=== PATIENT | female | born 1950 | race Caucasian/White ===

== ENCOUNTER 2016-09-01 15:46 | Emergency (ER) | payer MEDICARE, BC ==
[~2016-09-01] VITALS: Ht 165.1 cm; Wt 65.8 kg
[~2016-09-01 15:46] MED LIST: BACL10TA PO; HYDR-3326 PO
--- NOTE | 2016-09-01 16:30 | NUR ---
PT BIB CG FOR DYSURIA RENETTA AT NIGHT WITH BURNING SENSATION. DENIES FEVER. VSS. SEEN BY MD FOR EVAL. SAFETY AND COMFORT MEASURES PROVIDED. WILL MONITOR.
--- NOTE | 2016-09-01 17:00 | NUR ---
URINE SAMPLE OBTAINED, SENT.
[2016-09-01 17:20] LABS: APPEARANCE,URINE Clear (CLEAR); BILIRUBIN,URINE Negative (NEGATIVE); BLOOD, URINE Trace-intact Ery/uL (NEGATIVE); COLOR,URINE Yellow (YELLOW); KETONES,URINE Negative (NEGATIVE); LEUKOCYTE ESTERASE ,URINE Negative (NEGATIVE); NITRITE, URINE Positive (NEGATIVE); PROTEIN,URINE Negative (NEGATIVE); UGLUCOSE Negative (NEGATIVE); UROBILINOGEN,URINE 0.2 EU/dL (0.2)
[2016-09-01 17:37] LABS: BACTERIA,URINE Rare /HPF (None Seen); RBC,URINE 0-2 /HPF (0-2); SQUAMOUS EPITHELIAL CELL,UR Rare /HPF (None Seen); WBC,URINE 0-2 /HPF (0-3)
[2016-09-01] MEDS ORDERED: CIPROFLOXACIN HCL 500 MG TABLET ONE (18:09)
[2016-09-01] MEDS: CIPROFLOXACIN HCL 250 MG TABLET PO ONE (18:15)
--- NOTE | 2016-09-01 18:15 | NUR ---
Patient discharged to home in stable condition. Written and verbal after care instructions given. Patient verbalizes understanding of instruction.
--- NOTE | 2016-09-01 18:15 | NUR ---
PT SAFELY ASSISTED TO HER WHEELCHAIR TO THE WAITING ROOM TO BE PICKED UP BY HER CAREGIVER.
[2016-09-01 18:17] VITALS: BP 138/69
== END 2016-09-01 18:18 | disposition home or self-care (01) ==
LOC: ER 15:48
DX: N39.0 Urinary tract infection, site not specified (principal); G35 Multiple sclerosis
CPT/HCPCS: 51702; 81001; 99284; A4606; 81000-TC; Z7610

== ENCOUNTER 2016-11-04 11:12 | Emergency (ER) | payer MEDICARE, BC ==
[~2016-11-04] VITALS: Ht 162.6 cm; Wt 54.4 kg
--- NOTE | 2016-11-04 11:12 | NUR ---
BIB RA 860 FROM HOME, WORSENING GENERALIZED WEAKNESS SINCE YESTERDAY UNABLE TO GET UP,USUALLY AMBULATES W/ A WALKER. GOWNED PT AWAITING MD ORDER
--- NOTE | 2016-11-04 11:33 | NUR ---
EKG IN PROGRESS
[2016-11-04] MEDS: IV NS 0.9% 1,000 ML BAG IV ONE (11:34)
[2016-11-04 11:36] LABS: BASOPHILS % (AUTO) 0.7 % (0.0-2.0); EOSINOPHILS % (AUTO) 0.5 % (0.0-6.0); HEMATOCRIT 39 % (33-45); HEMOGLOBIN 13.2 g/dL (11.5-14.8); LYMPHOCYTES # (AUTO) 0.9 /CMM (0.8-4.8); LYMPHOCYTES % (AUTO) 14.8 % (20.0-44.0); MEAN CORPUSCULAR HEMOGLOBIN 30 PG (26.0-33.0); MEAN CORPUSCULAR HGB CONC 34 g/dl (31.0-36.0); MEAN CORPUSCULAR VOLUME 88 fL (82-100); MONOCYTES # (AUTO) 0.7 /CMM (0.1-1.30); NEUTROPHILS # (AUTO) 4.2 /CMM (1.8-8.9); PLATELET COUNT (AUTO) 207 /CMM (150-450); RDW COEFFICIENT OF VARIATION 12.7 (11.5-15.0); RED BLOOD CELL COUNT(AUTO) 4.44 MIL/uL (4.0-5.2); WHITE BLOOD COUNT (AUTO) 5.8 K/uL (4.3-11.0)
[2016-11-04 11:47] LABS: CARBON DIOXIDE 25 mmol/L (21-32); CHLORIDE 101 mmol/L (98-107); CREATININE 0.5 mg/dL (0.6-1.3); GLUCOSE 91 mg/dL (74-106); POTASSIUM 3.8 mmol/L (3.5-5.1); SODIUM SERUM 136 mmol/L (136-145); UREA NITROGEN, BLOOD 20 mg/dL (7-18)
[2016-11-04 11:51] LABS: INR 0.96 (0.87-1.13)
[2016-11-04 11:53] LABS: ALANINE AMINOTRANSFERASE 31 U/L (12-78); ALBUMIN 3.8 g/dL (3.4-5.0); ALKALINE PHOSPHATASE 77 U/L (46-116); ASPARTATE AMINOTRANSFERASE 28 U/L (15-37); BILIRUBIN,DIRECT 0.1 mg/dL (0.0-0.2); BILIRUBIN,TOTAL 0.6 mg/dL (0.2-1.0); TOTAL PROTEIN, SERUM 7.4 g/dL (6.4-8.2)
[2016-11-04 11:55] LABS: TROPONIN I < 0.017 ng/mL (0.00-0.056)
[2016-11-04 12:25] LABS: APPEARANCE,URINE Clear (CLEAR); BILIRUBIN,URINE Negative (NEGATIVE); BLOOD, URINE Negative Ery/uL (NEGATIVE); COLOR,URINE Yellow (YELLOW); KETONES,URINE 15 (NEGATIVE); LEUKOCYTE ESTERASE ,URINE Negative (NEGATIVE); NITRITE, URINE Negative (NEGATIVE); PH,URINE 6.5 (5.0-8.0); PROTEIN,URINE Negative (NEGATIVE); UGLUCOSE Negative (NEGATIVE); UROBILINOGEN,URINE 0.2 EU/dL (0.2)
[2016-11-04 12:33] VITALS: BP 135/71
[2016-11-04 12:34] LABS: BACTERIA,URINE None seen /HPF (None Seen); MUCUS,URINE Few /LPF (None Seen); SQUAMOUS EPITHELIAL CELL,UR Few /HPF (None Seen)
--- NOTE | 2016-11-04 12:41 | NUR ---
per bowl topper will be picking up patient and is en route at this time
== END 2016-11-04 13:22 | disposition home or self-care (01) ==
LOC: ER 11:13
DX: R53.1 Weakness (principal); G35 Multiple sclerosis; R09.81 Nasal congestion; R79.1 Abnormal coagulation profile; D64.9 Anemia, unspecified; Z98.890 Other specified postprocedural states
CPT/HCPCS: 36415; 71010-TC; 80048-TC; 80076-TC; 81000-TC; 83605-TC; 84484-TC; 85025-TC; 85730-TC; 87040-TC; 87086-TC; A4606; J7030; Z7610

== ENCOUNTER 2016-12-23 18:18 | Emergency (ER) | payer MEDICARE, BC ==
[~2016-12-23] VITALS: Ht 162.6 cm; Wt 54.4 kg
--- NOTE | 2016-12-23 18:30 | NUR ---
BIBCG FROM HOME DT PAIN IN URINATION. NO HEMATURIA NOR DYSURIA. VSS. AFEBRILE
[2016-12-23 19:20] LABS: APPEARANCE,URINE Clear (CLEAR); BILIRUBIN,URINE Negative (NEGATIVE); BLOOD, URINE Negative Ery/uL (NEGATIVE); COLOR,URINE Light yellow (YELLOW); KETONES,URINE Negative (NEGATIVE); LEUKOCYTE ESTERASE ,URINE Negative (NEGATIVE); NITRITE, URINE Negative (NEGATIVE); PROTEIN,URINE Negative (NEGATIVE); UGLUCOSE Negative (NEGATIVE); UROBILINOGEN,URINE 0.2 EU/dL (0.2)
--- NOTE | 2016-12-23 21:23 | NUR ---
ASSISTED BY ROBIN GASCA TO WHEEL CHAIR TO THE CAR.
--- NOTE | 2016-12-23 21:23 | NUR ---
Patient discharged to home in stable condition. Written and verbal after care instructions given. Patient verbalizes understanding of instruction.
[2016-12-23 21:24] VITALS: BP 110/69
== END 2016-12-23 21:26 | disposition home or self-care (01) ==
LOC: ER 18:21
DX: N89.8 Other specified noninflammatory disorders of vagina (principal); R30.0 Dysuria
CPT/HCPCS: 81001; 87086; 87210; 99284; A4606; 81000-TC; Z7610

== ENCOUNTER 2017-08-11 16:35 | Emergency (ER) | payer MEDICARE, BC ==
[~2017-08-11] VITALS: Ht 162.6 cm; Wt 55.8 kg
[~2017-08-11 16:35] MED LIST changes: -HYDR-3326 PO; +HYDR-3974 PO
--- NOTE | 2017-08-11 17:10 | NUR ---
PATIENT TO ED DT URINARY FREQUENCY AND URGENCY X 2DAYS. PATIENT IS AWAKE AND ALERT, APPEARS IN NO DISTRESS. RESPIRATION EVEN AND UNLABORED. SKIN IS WARM TO TOUCH AND NON DIAPHORETIC. PT IS AFEBRILE. VSS
[2017-08-11 18:01] LABS: BASOPHILS % (AUTO) 0.5 % (0.0-2.0); EOSINOPHILS % (AUTO) 0.8 % (0.0-6.0); HEMATOCRIT 40 % (33-45); HEMOGLOBIN 14.2 g/dL (11.5-14.8); LYMPHOCYTES # (AUTO) 1.8 /CMM (0.8-4.8); MEAN CORPUSCULAR HGB CONC 35 g/dl (31.0-36.0); MEAN CORPUSCULAR VOLUME 88 fL (82-100); MONOCYTES # (AUTO) 0.5 /CMM (0.1-1.30); MONOCYTES % (AUTO) 8.3 % (2.0-12.0); NEUTROPHILS # (AUTO) 3.6 /CMM (1.8-8.9); NEUTROPHILS % (AUTO) 59.4 % (43.0-81.0); PLATELET COUNT (AUTO) 224 /CMM (150-450); RDW COEFFICIENT OF VARIATION 13.1 (11.5-15.0); RED BLOOD CELL COUNT(AUTO) 4.61 MIL/uL (4.0-5.2); WHITE BLOOD COUNT (AUTO) 5.9 K/uL (4.3-11.0)
[2017-08-11 18:37] LABS: APPEARANCE,URINE Clear (CLEAR); BILIRUBIN,URINE Negative (NEGATIVE); BLOOD, URINE Small Ery/uL (NEGATIVE); COLOR,URINE Yellow (YELLOW); KETONES,URINE Negative (NEGATIVE); LEUKOCYTE ESTERASE ,URINE Negative (NEGATIVE); NITRITE, URINE Negative (NEGATIVE); PROTEIN,URINE Negative (NEGATIVE); UGLUCOSE Negative (NEGATIVE); UROBILINOGEN,URINE 0.2 EU/dL (0.2)
[2017-08-11 19:01] LABS: CREATININE 0.5 mg/dL (0.6-1.3); POTASSIUM 3.9 mmol/L (3.5-5.1)
[2017-08-11 19:03] LABS: BACTERIA,URINE Few /HPF (None Seen); SQUAMOUS EPITHELIAL CELL,UR Moderate /HPF (None Seen); URINE AMORPHOUS URATE Few /HPF (None Seen)
[2017-08-11 19:04] LABS: MUCUS,URINE Few /LPF (None Seen)
[2017-08-11 20:15] VITALS: BP 124/88
--- NOTE | 2017-08-11 20:15 | NUR ---
Patient discharged to home in stable condition. Written and verbal after care instructions given. Patient verbalizes understanding of instruction.
== END 2017-08-11 20:16 | disposition home or self-care (01) ==
LOC: ER 16:36
DX: R32 Unspecified urinary incontinence (principal); G35 Multiple sclerosis; F10.10 Alcohol abuse, uncomplicated
CPT/HCPCS: 36415; 51702; 80048; 81001; 85025; 99284; A4606; 81000-TC; Z7610

== ENCOUNTER 2018-11-04 16:25 | Emergency (ER) | payer MEDICARE, BC ==
[~2018-11-04] VITALS: Ht 165.1 cm; Wt 65.8 kg
--- NOTE | 2018-11-04 16:30 | NUR ---
dysuria and urinary frequency. Patient a/ox4, no distress noted, breathing even and unlabored, no sob noted, needs attended. Kept comfortable.
[2018-11-04 16:45] VITALS: BP 122/92
[2018-11-04 17:18] LABS: APPEARANCE,URINE Clear (CLEAR); BILIRUBIN,URINE Negative (NEGATIVE); BLOOD, URINE Trace-intact Ery/uL (NEGATIVE); COLOR,URINE Yellow (YELLOW); KETONES,URINE Negative (NEGATIVE); LEUKOCYTE ESTERASE ,URINE Negative (NEGATIVE); NITRITE, URINE Negative (NEGATIVE); PROTEIN,URINE Negative (NEGATIVE); UGLUCOSE Negative (NEGATIVE); UROBILINOGEN,URINE 0.2 EU/dL (0.2)
[2018-11-04 17:31] LABS: BACTERIA,URINE Rare /HPF (None Seen); SQUAMOUS EPITHELIAL CELL,UR Few /HPF (None Seen); WBC,URINE NONE SEEN /HPF (0-3)
== END 2018-11-04 18:21 | disposition home or self-care (01) ==
LOC: ER 16:32
DX: N39.0 Urinary tract infection, site not specified (principal); G35 Multiple sclerosis; D64.9 Anemia, unspecified; Z98.890 Other specified postprocedural states
CPT/HCPCS: 81000-TC; 87086-TC

== ENCOUNTER 2019-12-05 23:38 | Emergency (ER) | payer MEDICARE, OTHER ==
[~2019-12-05] VITALS: Ht 162.6 cm; Wt 59.0 kg
--- NOTE | 2019-12-05 23:52 | NUR ---
PT AAOX4. BIBRA C/O L RIB PAIN AND L FOOT PAIN S/P FALLING OFF OF HER WHEELCHAIR WHILE CHANGING. NO KO, -TRAUMA. HEMATOMA NOTED L LEG. MD AT BEDSIDE FOR EVAL. NO ACUTE DISTRESS NOTED. SKIN WARM AND INTACT. AWAITING ORDERS.
[2019-12-05] MEDS ORDERED: HYDROCODONE/APAP 5/325MG TABLET ONE (23:57)
[2019-12-06] MEDS ORDERED: HYDROCODONE/APAP 5/325MG TABLET PO ONE
--- NOTE | 2019-12-06 00:09 | NUR ---
RADIOLOGY AT BEDSIDE
--- NOTE | 2019-12-06 01:21 | NUR ---
CALLED AGRICULTURAL EQUIPMENT DESIGN ENGINEER, STATED SHE WILL COMMUNICATIONS EQUIPMENT OPERATOR PT SOON.
--- NOTE | 2019-12-06 02:02 | NUR ---
Patient discharged to home in stable condition. Written and verbal after care instructions given. Patient verbalizes understanding of instruction and RX. Pt wheeled out of E.D. with skin care consultant.
[2019-12-06 02:03] VITALS: BP 129/73
[2019-12-13] MEDS ORDERED: DALF10TA PO (13:45)
[2019-12-13] MEDS ORDERED: ALEN70TA6 PO (13:45)
== END 2019-12-06 02:04 | disposition home or self-care (01) ==
LOC: ER 23:39
DX: S80.12XA Contusion of left lower leg, initial encounter (principal); R07.81 Pleurodynia; G35 Multiple sclerosis; Z98.890 Other specified postprocedural states; Z79.899 Other long term (current) drug therapy; X58.XXXA Exposure to other specified factors, initial encounter; Y93.89 Activity, other specified; Y92.89 Other specified places as the place of occurrence of the external cause; Y99.8 Other external cause status
CPT/HCPCS: 71100-TC; 73590-TC

== ENCOUNTER 2021-02-13 00:26 | Emergency (ER) | payer MEDICARE, OTHER ==
[~2021-02-13] VITALS: Ht 162.6 cm; Wt 61.2 kg
[~2021-02-13 00:26] MED LIST changes: +ALEN70TA80 PO; +DALF10TA PO; -HYDR-3974 PO; +RXVAN XX
--- NOTE | 2021-02-13 00:30 | NUR ---
BIBRA FROM HOME FOR C/O R FOOT PAIN S/P SLIP AND FALL WHILE WALKING W/ HER WALKER. DENIED ANY PAIN ON ANKLE, KNEE OR HIP ON ANY SIDE. A, OX4. REPORTED LIVING W/ A CG. PT WAS ASSISTED TO BED 10ER. ON MONITOR . VSS. WILL CONT TO MONITOR ,
[2021-02-13] MEDS ORDERED: IBUPROFEN 400 MG TABLET ONE (01:25)
[2021-02-13] MEDS ORDERED: IBUPROFEN 400 MG TABLET PO ONE (01:30)
--- NOTE | 2021-02-13 02:35 | NUR ---
TRANSPORTATION WAS ARRANGED TO TAKE THE PT BACK HOME BY [facility]. ETA: AN HOUR
--- NOTE | 2021-02-13 03:58 | NUR ---
PATIENT BEING TRANSFERRED VIA AMBULANCE
[2021-02-13 03:59] VITALS: BP 148/80
== END 2021-02-13 04:43 | disposition home or self-care (01) ==
LOC: ER 00:33
DX: S93.691A Other sprain of right foot, initial encounter (principal); G35 Multiple sclerosis; D64.9 Anemia, unspecified; Z79.899 Other long term (current) drug therapy; Z60.2 Problems related to living alone; W01.0XXA Fall on same level from slipping, tripping and stumbling without subsequent striking against object, initial encounter; Y93.01 Activity, walking, marching and hiking; Y92.89 Other specified places as the place of occurrence of the external cause; Y99.8 Other external cause status
CPT/HCPCS: 73630-TC

== ENCOUNTER 2024-01-23 03:10 | Emergency (ER) | payer MEDICARE, OTHER ==
[~2024-01-23] VITALS: Ht 162.6 cm; Wt 67.1 kg
[2024-01-23 03:39] LABS: BASOPHILS % (AUTO) 0.7 % (0.0-2.0); EOSINOPHILS % (AUTO) 0.7 % (0.0-6.0); HEMATOCRIT 35 % (33-45); HEMOGLOBIN 12.1 g/dL (11.5-14.8); LYMPHOCYTES # (AUTO) 1.9 K/uL (0.8-4.8); MEAN CORPUSCULAR HEMOGLOBIN 29 PG (26.0-33.0); MEAN CORPUSCULAR HGB CONC 34 g/dl (31.0-36.0); MEAN CORPUSCULAR VOLUME 85 fL (82-100); MONOCYTES # (AUTO) 0.4 K/uL (0.1-1.30); MONOCYTES % (AUTO) 7.3 % (2.0-12.0); NEUTROPHILS # (AUTO) 3.5 K/uL (1.8-8.9); NEUTROPHILS % (AUTO) 59.3 % (43.0-81.0); PLATELET COUNT (AUTO) 233 K/uL (150-450); RED BLOOD CELL COUNT(AUTO) 4.16 MIL/uL (4.0-5.2); RED CELL DISTRIBUTION WIDTH 15.4 % (11.5-15.0); WHITE BLOOD COUNT (AUTO) 5.9 K/uL (4.3-11.0)
[2024-01-23 03:57] LABS: CALCIUM, SERUM 9.5 mg/dL (8.5-10.1); CARBON DIOXIDE 27 mmol/L (21-32); CHLORIDE 103 mmol/L (98-107); CREATININE 0.5 mg/dL (0.6-1.3); GLUCOSE 111 mg/dL (74-106); SODIUM SERUM 139 mmol/L (136-145); UREA NITROGEN, BLOOD 29 mg/dL (7-18)
[2024-01-23 04:03] LABS: ACETAMINOPHEN < 10 ug/ml (10-30); ALANINE AMINOTRANSFERASE 38 U/L (12-78); ALBUMIN 3.5 g/dL (3.4-5.0); ALCOHOL, BLOOD < 3 mg/dL (0-10); ALKALINE PHOSPHATASE 90 U/L (46-116); ASPARTATE AMINOTRANSFERASE 20 U/L (15-37); BILIRUBIN,DIRECT 0.1 mg/dL (0.0-0.2); BILIRUBIN,TOTAL 0.2 mg/dL (0.2-1.0); TOTAL PROTEIN, SERUM 7.5 g/dL (6.4-8.2)
[2024-01-23 04:04] LABS: SALICYLATE 0.9 mg/dL (2.8-20.0)
[2024-01-23 11:19] VITALS: BP 133/84; TEMP 97.8; O2SAT 98
== END 2024-01-23 11:19 | disposition home or self-care (01) ==
LOC: ER 03:14
DX: F22 Delusional disorders (principal); G35 Multiple sclerosis; Z20.822 Contact with and (suspected) exposure to COVID-19
CPT/HCPCS: 36415; 80048-TC; 80076-TC; 85025-TC; G0480

== ENCOUNTER 2024-08-12 17:49 | Emergency (ER) | payer MEDICARE, OTHER ==
[~2024-08-12] VITALS: Ht 167.6 cm; Wt 65.8 kg
[2024-08-12] MEDS ORDERED: ACETAMINOPHEN ES 500 MG TABLET ONE (18:28)
[2024-08-12] MEDS: ACETAMINOPHEN ES 500 MG TABLET PO ONE (18:30)
[2024-08-12 21:07] VITALS: BP 146/70; TEMP 98.3; O2SAT 99
== END 2024-08-12 21:08 | disposition home or self-care (01) ==
LOC: ER 17:58
DX: R51.9 Headache, unspecified (principal); Z79.899 Other long term (current) drug therapy; Z86.69 Personal history of other diseases of the nervous system and sense organs; Z87.39 Personal history of other diseases of the musculoskeletal system and connective tissue; Z60.2 Problems related to living alone; W06.XXXA Fall from bed, initial encounter; Y93.89 Activity, other specified; Y92.89 Other specified places as the place of occurrence of the external cause; Y99.8 Other external cause status
CPT/HCPCS: 70450-TC; 72125-TC